=== PATIENT | female | born 1985 | race Two or more races ===

== ENCOUNTER 2016-06-28 03:15 | Emergency (ER) | payer BC ==
[~2016-06-28] VITALS: Ht 165.1 cm; Wt 68.0 kg
[2016-06-28 03:30] VITALS: BP 143/87
--- NOTE | 2016-06-28 03:51 | Emergency Room Report ---
History of Present Illness General Chief Complaint: Abdominal Pain Source: Patient Present Illness HPI Patient's 30-year-old female who presented after increased lower abdominal pain. The patient gradual onset of symptoms. Patient states that she recently been diagnosed with being . Patient had been taking vitamins. She denied any diarrhea. She denied any severe pain. She reported having a fullness sensation in the lower abdomen. She had not been having any fever or severe pain. Pain was unchanged with ambulation or food. She denied any dysuria. The last menstrual period was approximately March. She reports having some irregular periods. She's had prior Allergies: Coded Allergies: No Known Allergies (Unverified , 06/28/16) Patient History Past Medical History: see triage record Last Menstrual Period: MAR 32 Now: Yes - UNKNOWN WEEKS : 1 Reviewed Nursing Documentation: PMH: Agreed, PSxH: Agreed Nursing Documentation-PMH Hx Diabetes: Yes Review of Systems All Other Systems: negative except mentioned in HPI Physical Exam Vital Signs Date Time Temp Pulse Resp B/P Pulse Ox O2 Delivery O2 Flow Rate FiO2 06/28/16 03:21 97.9 67 18 143/87 98 Room Air Sp02 EP Interpretation: reviewed, normal General Appearance: normal inspection, well appearing, no apparent distress, alert, GCS 15 Head: atraumatic ENT: normal ENT inspection, hearing grossly normal, normal voice Neck: normal inspection, full range of motion, supple, no bony tend Respiratory: normal inspection, lungs clear, normal breath sounds, no respiratory distress, no retraction, no wheezing Cardiovascular #1: regular rate, rhythm, no edema Gastrointestinal: normal inspection, normal bowel sounds, non tender, soft, no guarding, no hernia, other - healed surgical scar Genitourinary: no CVA tenderness Musculoskeletal: normal inspection, back normal, normal range of motion Neurologic: normal inspection, alert, oriented x3, responsive, soil technologist III-XII nml as tested, motor strength/tone normal, speech normal Psychiatric: normal inspection, judgement/insight normal, mood/affect normal Skin: normal inspection, normal color, no rash Medical Decision Making Diagnostic Impression: Primary Impression: Intrauterine Additional Impression: Abdominal pain ER Course Patient presented for abdominal pain. Differential diagnoses included ischemic bowel, appendicitis, perforated viscus, abdominal aortic aneurysm, inferior myocardial infarction, viral gastroenteritis Patient's benign exam and does not appear to require any further imaging or laboratory testing at this time. The bedside altered some was performed and showed intrauterine with heart tones approximately 150. Patient was noted to have no free fluid. The patient was given Mylanta for pain. The patient is advised to follow up with primary care doctor in 1-2 days. Patient is advised to return if any worsening condition or if any changes in status that are concerning. Last Vital Signs Date Time Temp Pulse Resp B/P Pulse Ox O2 Delivery O2 Flow Rate FiO2 06/28/16 03:21 97.9 67 18 143/87 98 Room Air Status: improved Disposition: HOME, SELF-CARE Condition: Stable Luis Barahona Jun 28, 2016 03:51
[2016-06-28 03:57] LABS: APPEARANCE,URINE CLEAR; KETONES,URINE NEGATIVE (NEGATIVE); LEUKOCYTE ESTERASE ,URINE 2+ (NEGATIVE); NITRITE,URINE NEGATIVE (NEGATIVE); PH,URINE 6.5 (4.5-8.0); PROTEIN,URINE NEGATIVE (NEGATIVE); UROBILINOGEN,URINE NORMAL MG/DL (0.0-1.0)
[2016-06-28 04:03] LABS: RBC,URINE 0 /HPF (0 - 2); SQUAMOUS EPITHELIAL CELL,UR MANY /LPF (NONE/OCC)
[2016-06-28] MEDS ORDERED: KEFLEX500 MG ORAL (04:05)
[2016-06-28 04:15] VITALS: BP 139/82
== END 2016-06-28 04:15 | disposition home or self-care (01) ==
LOC: EMR 03:38
DX: O26.891 Other specified pregnancy related conditions, first trimester (principal); R10.30 Lower abdominal pain, unspecified; O34.219 Maternal care for unspecified type scar from previous cesarean delivery; O24.911 Unspecified diabetes mellitus in pregnancy, first trimester
CPT/HCPCS: 81003; 81025; 99282